=== PATIENT | male | born 2000 | race African-American/Black ===

== ENCOUNTER 2021-07-27 02:13 | Emergency (ER) | payer OTHER ==
[~2021-07-27] VITALS: Ht 177.8 cm; Wt 79.3 kg
[2021-07-27 02:13] VITALS: BP 125/60
== END 2021-07-27 04:05 | disposition left against medical advice (07) ==
LOC: M ED 02:13
DX: Z53.21 Procedure and treatment not carried out due to patient leaving prior to being seen by health care provider (principal)